=== PATIENT | male | born 1950 | race Caucasian/White ===

== ENCOUNTER 2017-11-07 19:14 | Emergency (ER) | payer OTHER ==
[~2017-11-07] VITALS: Ht 175.3 cm; Wt 73.5 kg
--- NOTE | 2017-11-07 21:04 | ED NECK/BACK PAIN COMPLAINT ---
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 PT DENIES HEADSTRIKE. STATES PAIN IS JUST BELOW RIBS ON R SIDE. AMBULATED TO TRIAGE WITHOUT DIFFICULTY. DENIES SOB, NUMBNESS, TINGLING. Triage Nurses Notes Reviewed? yes HPI: Patient was mowing on a tractor mowing a field when he got hit on the left side of his back. Patient is unsure whether it was a sticker parenteral rock. Patient states that it felt that he was poked. Patient has been having pain to that area since then. The pain increases when he touches the area. There is no radiation pain. The pain is aching in nature. He rates the pain at 5 out of 10. There is no shortness of breath. Past History Travel History Traveled to [place] past 21 day No Medical History Any Pertinent Medical History? see below for history Neurological: NONE EENT: NONE Cardiovascular: hypertension Respiratory: NONE Gastrointestinal: NONE Hepatic: NONE Renal: SIADH Musculoskeletal: NONE Psychiatric: NONE Endocrine: NONE Blood Disorders: NONE Cancer(s): prostate cancer [employer] B[employer] REPA[employer] CHIEF/Reproductive: NONE Surgical History Surgical History: appendectomy Psychosocial History Who do you live with Patient/Self What is your primary language [place] Tobacco Use: Never used ETOH Use: occasional use Illicit Drug Use: denies illicit drug use Family History Hx Contributory? No Review of Systems Review of Systems Constitutional: Reports: no symptoms. Ears, Nose, Throat, Mouth: Reports: no symptoms. Respiratory: Reports: no symptoms. Cardiovascular: Reports: no symptoms. Gastrointestinal/Abdominal: Reports: no symptoms. Musculoskeletal: Reports: see HPI, back pain. Neurological/Psychological: Reports: no symptoms. Physical Exam Physical Exam General Appearance: well developed/nourished, alert, awake, anxious, mild distress Head: atraumatic, normal appearance Eyes: Bilateral: PERRL, EOMI. Neck: normal inspection, supple, no midline tenderness Respiratory: normal breath sounds, no respiratory distress, lungs clear Cardiovascular: regular rate/rhythm, normal peripheral pulses Gastrointestinal: normal bowel sounds, soft, non-tender, no organomegaly Back: ECCHYMOSIS TO LEFT FLANK Core Measures CVA/TIA Diagnosis: No Progress Differential Diagnosis: CONTUSION, INJURY, RENAL INJURY Plan of Care: Orders Procedure Date/time Status URINALYSIS 11/08 2103 Complete Laboratory Tests 11/07/172123: Urine Color YEL, Urine Clarity CLEAR, Urine pH 6.0, Ur Specific [place] 1.020, Urine Protein NEG, Urine Ketones TRACE H, Urine Nitrite NEG, Urine Bilirubin NEG, Urine Urobilinogen 0.2, Ur Leukocyte Esterase NEG, Ur Microscopic EXAM NOT REQUIRED, Urine Hemoglobin NEG, Urine Glucose NEG Diagnostic Imaging: Viewed by Me: Radiology Read. Discussed w/RAD: Radiology Read. Radiology Impression: PATIENT: PAUL CHRISTIAN PRESENT AGE: 66 PATIENT ACCOUNT NO: [id number] : 52 LOCATION: [facility] ORDERING PHYSICIAN: Paul Cabral MD SERVICE DATE: 11/07/17 EXAM TYPE: RAD - XRY-RIBS UNILATERAL-LEFT EXAMINATION: XR RIBS, LEFT CLINICAL INFORMATION: Trauma to the left lower posterior ribs. Pain. COMPARISON: None TECHNIQUE: PA chest. 5 views of the left ribs. FINDINGS: Lungs are clear. No consolidation, pneumothorax, or pleural effusion. The cardiomediastinal silhouette and pulmonary vasculature are normal. There is multilevel degenerative spondylosis of the dorsal spine. There is a displaced anterior lateral left 10th rib. IMPRESSION: Fracture of the left 10th rib. No pneumothorax. Lungs are clear. DICTATED BY: Nathaniel Raymundo MD DATE/TIME DICTATED: 11/07/172154 ELECTRICAL & INSTRUMENTATION SUPERVISOR:DONTRELL DATE/TIME TRANSCRIBED:11/07/172154 CONFIDENTIAL, DO NOT COPY WITHOUT APPROPRIATE AUTHORIZATION. <Electronically signed in Other Vendor System> SIGNED BY: Nathaniel Raymundo MD 11/07/172200 Departure Departure Disposition: HOME OR SELF CARE Condition: Stable Clinical Impression Primary Impression: Rib fracture Referrals: Moriah KARIMI,Vince Sanderson (PCP/Family) Additional Instructions: Use incentive spirometer. Take Percocet as needed for pain. Take a stool softener while on the Percocet. Return for any shortness of breath, fevers, productive cough or for any concerns. Departure Forms: Customer Survey General Discharge Information Prescriptions: Current Visit Scripts Oxycodone HCl/Acetaminophen (Percocet 5-325 MG Tablet) 1-2 TAB PO Q6P PRN PAIN #20 TAB
[2017-11-07 21:32] VITALS: BP 195/95
--- NOTE | 2017-11-07 22:01 | RADIOLOGY REPORT ---
EXAMINATION: XR RIBS, LEFT CLINICAL INFORMATION: Trauma to the left lower posterior ribs. Pain. COMPARISON: None TECHNIQUE: PA chest. 5 views of the left ribs. FINDINGS: Lungs are clear. No consolidation, pneumothorax, or pleural effusion. The cardiomediastinal silhouette and pulmonary vasculature are normal. There is multilevel degenerative spondylosis of the dorsal spine. There is a displaced anterior lateral left 10th rib. IMPRESSION: Fracture of the left 10th rib. No pneumothorax. Lungs are clear.
[2017-11-07] MEDS ORDERED: PERCOCET 5-3251 EACH PO (22:15)
== END 2017-11-07 22:31 ==
LOC: ERH 19:14
DX: S22.32XA Fracture of one rib, left side, initial encounter for closed fracture (principal); W22.8XXA Striking against or struck by other objects, initial encounter; Y92.9 Unspecified place or not applicable; Y93.9 Activity, unspecified
CPT/HCPCS: 71100-LT; 81001; 81003